=== PATIENT | male | born 1990 | race African-American/Black ===

== ENCOUNTER 2017-03-15 09:51 | Emergency (ER) | payer MEDICAID ==
[~2017-03-15] VITALS: Ht 180.3 cm; Wt 81.0 kg
[2017-03-15 11:42] LABS: CLARITY URINE CLEAR (CLEAR); COLOR URINE YELLOW (YELLOW); GLUCOSE URINE NEGATIVE (NEGATIVE); KETONES URINE TRACE (NEGATIVE); LEUKOCYTE ESTERASE URINE NEGATIVE (NEGATIVE); NITRITE URINE NEGATIVE (NEGATIVE); OCCULT BLOOD URINE 1+ (NEGATIVE); PH URINE 5.5 (4.5-8.0); PROTEIN URINE 3+ (NEGATIVE); SPECIFIC GRAVITY URINE 1.026 (1.005-1.030)
[2017-03-15 12:03] LABS: HEMATOCRIT. 43.1 % (42.0-52.0); HEMOGLOBIN. 14.7 g/dL (14.0-18.0); MEAN CORPUSCULAR HEMOGLOBIN 30.9 pg (28.0-32.0); MEAN CORPUSCULAR VOLUME 90.8 fL (80.0-94.0); MEAN PLATELET VOLUME 9.7 fl (7.4-10.4); PLATELET 73 x1000/uL (130-400); RED BLOOD CELL COUNT 4.75 mill/uL (4.7-6.1); RED CELL DISTRIBUTION WIDTH 14.1 % (11.6-14.6)
[2017-03-15 12:06] LABS: INR 1.1; PROTHROMBIN TIME 11.7 sec (9.4-11.6)
[2017-03-15 12:08] LABS: CARBON DIOXIDE 29 mEq/L (21-32); CHLORIDE 103 mEq/L (98-107)
[2017-03-15 12:29] LABS: ATYPICAL LYMPHOCYTES 1
[2017-03-15 12:30] LABS: PLATELET ESTIMATE DECREASED
[2017-03-15] MEDS ORDERED: ACETAMINOPHEN 325MG TABLET PO ONE (12:45)
[2017-03-15 12:47] VITALS: BP 124/75
== END 2017-03-15 13:06 | disposition home or self-care (01) ==
LOC: ER 10:15
DX: K64.9 Unspecified hemorrhoids (principal); D72.819 Decreased white blood cell count, unspecified; F17.200 Nicotine dependence, unspecified, uncomplicated; R50.9 Fever, unspecified
CPT/HCPCS: 36415; 71010; 80053; 81001; 85025; 85610; 99285

== ENCOUNTER 2019-07-04 09:28 | Emergency (ER) | payer MEDICAID ==
[~2019-07-04] VITALS: Ht 182.9 cm; Wt 84.0 kg
[2019-07-04 09:39] VITALS: BP 118/80
== END 2019-07-04 09:51 | disposition left against medical advice (07) ==
LOC: ER 09:41
DX: Z53.21 Procedure and treatment not carried out due to patient leaving prior to being seen by health care provider (principal)